=== PATIENT | female | born 1970 | race Two or more races ===

== ENCOUNTER 2021-02-26 11:43 | Emergency (ER) | payer MEDICAID, OTHER ==
[~2021-02-26] VITALS: Ht 157.5 cm; Wt 64.4 kg
[2021-02-26 11:54] VITALS: BP 109/57
== END 2021-02-26 14:28 | disposition left against medical advice (07) ==
LOC: ER 11:43
DX: M79.601 Pain in right arm (principal); M25.551 Pain in right hip; Z53.21 Procedure and treatment not carried out due to patient leaving prior to being seen by health care provider; W01.0XXA Fall on same level from slipping, tripping and stumbling without subsequent striking against object, initial encounter; Y93.89 Activity, other specified; Y92.89 Other specified places as the place of occurrence of the external cause; Y99.8 Other external cause status

== ENCOUNTER 2023-02-16 22:04 | Emergency (ER) | payer OTHER ==
[~2023-02-16] VITALS: Ht 157.5 cm; Wt 68.1 kg
[2023-02-16 22:35] LABS: Basophils # (auto) 0 10 ^3/uL (0-0.2); Basophils % (auto) 0.3 % (0.0-2.0); Eosinophils # (auto) 0.1 10 ^3/uL (0-0.8); Eosinophils % (auto) 2.5 % (0.0-7.0); Hematocrit 38.3 % (36.0-46.0); Hemoglobin 12.6 g/dL (12.2-16.2); Lymphocytes # (auto) 2.2 10 ^3/uL (0.4-5.4); Lymphocytes % (auto) 35.9 % (10.0-50.0); Mean Corpuscular Hemoglobin 29.5 pg (28.0-32.0); Mean Corpuscular Volume 89.5 fL (80.0-100.0); Monocytes # (auto) 0.4 10 ^3/uL (0-1.3); Neutrophils # (auto) 3.3 10 ^3/uL (1.6-8.6); Neutrophils % (auto) 54.3 % (37.0-80.0); Nucleated Red Blood Cells % 0.1 %; Red Blood Cells 4.28 10^6/uL (4.0-5.20)
[2023-02-16 22:53] LABS: Alanine Aminotransferase 19 U/L (7-40); Albumin 4.6 g/dL (3.2-4.8); Alkaline Phosphatase 129 U/L (46-116); Anion Gap 6 (5-15); Aspartate Aminotransferase 22 U/L (13-40); Bilirubin, Total 0.4 mg/dL (0.2-1.0); Blood Urea Nitrogen 13 mg/dL (9-23); Calcium 9.4 mg/dL (8.5-10.1); Carbon Dioxide 26 mmol/L (20-30); Chloride 109 mmol/L (98-107); Glucose 80 mg/dL (74-106); Potassium 3.8 mmol/L (3.5-5.1); Sodium 141 mmol/L (136-145); Total Protein 7.2 g/dL (5.7-8.2)
[2023-02-16 22:55] LABS: INR 0.97 (0.9-1.15); Partial Thromboplastin Time 26.8 SEC (24.5-34.5); Prothrombin Time 10.2 sec (9.3-11.8)
[2023-02-17 03:34] VITALS: BP 130/76; PULSE 62; RESP 14; TEMP 98.1; O2SAT 99
== END 2023-02-17 03:30 | disposition home or self-care (01) ==
LOC: ER 22:04
DX: R07.89 Other chest pain (principal); Z98.51 Tubal ligation status
CPT/HCPCS: 36415; 71045; 80053; 83735; 83880; 84484; 85025; 85610; 85730; 93005

== ENCOUNTER 2025-02-09 20:38 | Emergency (ER) | payer OTHER ==
[~2025-02-09] VITALS: Ht 157.5 cm; Wt 68.8 kg
[2025-02-09 20:40] VITALS: BP 139/96; PULSE 66; RESP 16; TEMP 98.3; O2SAT 98
--- NOTE | 2025-02-09 23:15 | ED.PDOC ---
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 PT WAS TOLD TO COME TO THE ER TO BEEN SEEN AND FOR PROPER PAPERWORK. 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 History Family History Family History: Unobtainable Social History Smoker: Non-Smoker Alcohol: Denies ETOH Use Drugs: Denies Drug Use Lives In: Home All Other Systems: Reviewed and Negative (see hpi) Physical Exam General Appearance: No Apparent Distress, Normal HEENT: Pharynx Normal Neck: Full Range of Motion, Non-Tender Respiratory: Lungs Clear, No Respiratory Distress, Normal Breath Sounds Cardiovascular: No Murmur, Normal Peripheral Pulses, Regular Rate/Rhythm Breast Exam: Deferred Gastrointestinal: Non Tender, Soft Genitalia: Deferred Pelvic: Deferred Rectal: Deferred Extremities: Normal capillary refill, Normal range of motion, Non-tender Musculoskeletal : Apperance: Normal Neurologic: Alert, No Motor Deficits, Normal Affect, Normal Mood, No Sensory Deficits Cerebellar Function: Normal Reflexes: Normal Skin: Dry, Normal Color, Warm, Wounds (left thumb healed puncture wound) Lymphatic: No Adenopathy Was a procedure done? Was a procedure done?: No Differential Diagnosis (EXP) Differential Diagnosis: Body fluid exposure, Infect. Disease exposure, Needle stick exposure X-Ray, Labs, Meds, VS Vital Signs Date Time Temp Pulse Resp B/P (MAP) Pulse Ox O2 Delivery O2 Flow Rate FiO2 02/09/25 20:40 98.3 66 16 139/96 98 98.3 Lab Test 02/09/25 21:20 Range/Units Hepatitis B Surface Antigen Pending Hepatitis B Surface Antibody Pending Hepatitis C Antibody Pending HIV (1&2) Antibody Negative Negative X-Ray, Labs, Meds, VS Comment follow with hr as discussed Time of 1ST Reevaluation: 20:48 Reevaluation 1ST: Unchanged Time of 2ND Reevaluation: 23:14 Reevaluation 2ND: Improved Patient Education/Counseling: Diagnosis, Treatment, Need For Follow Up Family Education/Counseling: No Family Present Departure 1 Departure Time of Disposition: 23:13 Impression: Primary Impression: Needle exposure Qualified Codes: X58.XXXA - Exposure to other specified factors, initial encounter Disposition: HOME / SELF CARE / HOMELESS Condition: Stable e-Prescriptions No Active Prescriptions or Reported Meds Discharged With: Self Critical Care Note Critical Care Time?: No Stability Stability form required: AISSATOU Pineda Feb 09, 2025 23:14
[2025-02-09] MEDS: TETANUS-DIPTH-ACEL PERTUSSIS 0.5ML SYR Tdap IM ONE (23:45)
[2025-02-10 11:25] LABS: Hepatitis B Surface Antigen Negative (Negative)
== END 2025-02-09 23:56 | disposition home or self-care (01) ==
LOC: EEVIPCON 20:38 → ER 20:38
DX: S61.032A Puncture wound without foreign body of left thumb without damage to nail, initial encounter (principal); Z98.51 Tubal ligation status; Z98.890 Other specified postprocedural states; X58.XXXA Exposure to other specified factors, initial encounter; Y93.89 Activity, other specified; Y92.89 Other specified places as the place of occurrence of the external cause; Y99.8 Other external cause status
CPT/HCPCS: 36415; 86703; 86706; 86803; 87340; 90471; 90715